=== PATIENT | female | born 1990 | race Caucasian/White ===

== ENCOUNTER → 2021-03-15 | Outpatient (CLI) | payer OTHER | END | disposition home or self-care (01) | LOC: RAD 13:52 | PROVIDERS: ATTEND Internal Medicine | DX: R76.11 Nonspecific reaction to tuberculin skin test without active tuberculosis (principal) ==

== ENCOUNTER 2024-07-30 18:59 | Emergency (ER) | payer OTHER ==
[~2024-07-30] VITALS: Ht 149.8 cm; Wt 93.9 kg
[2024-07-30] MEDS ORDERED: WELLBUTRIN SR100 MG PO (19:18)
[2024-07-30] MEDS ORDERED: LAMICTAL100 MG PO (19:18)
[2024-07-30] MEDS ORDERED: methylPREDNISolone sod succ 125 MG VIAL IM ONE (19:30)
[2024-07-30] MEDS ORDERED: PREDNISONE20 M1 PO (19:32)
== END 2024-07-30 19:37 | disposition home or self-care (01) ==
LOC: ED 18:59
DX: G58.8 Other specified mononeuropathies (principal); R53.1 Weakness; R20.2 Paresthesia of skin